=== PATIENT | male | born 1970 | race Caucasian/White ===

== ENCOUNTER 2017-05-28 05:17 | Observation (INO) | payer SELFPAY ==
[~2017-05-28] VITALS: Ht 180.3 cm; Wt 108.1 kg
[~2017-05-28 05:17] MED LIST: GABAPENTIN300 MG PO; LIDOCAINE HCL50 ML TOP; ROBAXIN-750750 MG PO
[2017-05-28] MEDS ORDERED: BUPIVACAINE 0.25% 30ML SDV INJ ONE (06:51)
[2017-05-28] MEDS ORDERED: GELATIN SPONGE SZ 100 ONE (06:52)
[2017-05-28] MEDS ORDERED: BACITRACIN 50,000 UNIT VIAL ONE ×2 (06:52→09:51)
[2017-05-28] MEDS ORDERED: MINERAL OIL STERILE 10ML VIAL ONE (07:07)
[2017-05-28] MEDS ORDERED: LIDOCAINE HCL (LTA) 4 ML SOLN ONE (07:29)
[2017-05-28] MEDS ORDERED: FENTANYL CITRATE/PF 100MCG/2 ML INJ ONE ×2 (11:01→19:12)
[2017-05-28] MEDS ORDERED: HYDROMORPHONE 1MG/1ML INJ ONE ×2 (11:24→11:55)
[2017-05-28 12:25] VITALS: BP 120/79
[2017-05-28] MEDS ORDERED: TRAMADOL HCL 50 MG TAB PO PRN (13:00)
[2017-05-28] MEDS ORDERED: MORPHINE SULFATE 5 MG/ML VIAL IM PRN (13:00)
--- NOTE | 2017-05-28 13:07 | Operative Report ---
DATE OF PROCEDURE: May 28, 2017 PREOPERATIVE DIAGNOSIS: Herniated lumbar disk, L4-L5 on the left. POSTOPERATIVE DIAGNOSIS: Herniated lumbar disk, L4-L5 on the left, with abnormal blood vessels. PROCEDURE: Lumbar laminectomy under the microscope at L4-L5 on the left, removal of extruded disk, foraminotomy and neurolysis external, intraoperative interpretation of x-rays times 2, removal of abnormal epidural blood vessels, harvesting of subcutaneous fat and placement of epidural fat graft to prevent ingrowth of scar. ESTIMATED BLOOD LOSS: 100 mL. COUNTS: Reported as correct. OPERATIVE PROCEDURE: After satisfactory general intubation anesthesia was established, the patient was placed prone on the operating room table, with care being taken to ensure normal circulatory and respiratory functioning. A localizing x-ray had been taken, which I interpreted to indicate the needle was pointed to the L5-S1 area. The incision was carried out after prepping and draping. The incision was carried down through the subcutaneous tissues, past 2 or 3 inches of fat to the dorsal fascia. The fascia was from the spine at L4 and L5 on the left side. An x-ray was taken and confirmed the level as being L4-5. I drilled down the fairly thick lamina of L4 and L5, took out the thick, yellow ligament. This revealed an L5 nerve root that was markedly swollen and compressed. A foraminotomy and neurolysis were done. There were very large blood vessels that seemed to be venous and some arterial in the epidural space. These were packed off, and bipolar coagulation was used as required to control the bleeding. The nerve root was freed up as mentioned. An incision was made through the disk material, and multiple disk particles were removed. Reverse-angle curets were used to push down the material in the midline and out laterally. Good decompression was achieved. A large amount of disk material was removed that had extruded, and the disk space was cleaned out satisfactorily. The nerve root was now nice and loose, pulsatile, without any evidence of any further compression. I probed the foramen for the L4 nerve root, and it was free of any disk. There were large blood vessels epidurally. These were cauterized, cut and sent off for analysis. These seemed to be inflammatory blood vessels that were in response to the large disk herniation and the block in that area. The block had been relieved. Good hemostasis was obtained. Copious amounts of irrigation were made with antibiotic solution. I harvested some fat from the subcutaneous tissues and placed this in the opening of the lamina to prevent ingrowth of scar. Closure was made with #1 Vicryl in the fascial layer, multiple-layer closure with more superficial closure with 3-0 Vicryl in the subcuticular area and Steri-Strips in the skin. Sterile dressing was applied. The patient tolerated the procedure well and went to recovery room with stable vital signs. OPERATIVE FINDINGS: The patient had very large disk herniation. It was central and to the left with very swollen L5 nerve root. There were also abnormal blood vessels in the region that were removed and controlled. Job#: [id number]
[2017-05-28 13:18] VITALS: BP 120/79
[2017-05-28] MEDS ORDERED: CEFAZOLIN SOD 1 GM VIAL ONE (13:42)
[2017-05-28] MEDS ORDERED: MORPHINE SULFATE INJ 4 MG/ML INJ IV PRN (13:45)
[2017-05-28] MEDS ORDERED: CEFAZOLIN SOD 1 GM in WATER STERILE 10ML VIAL 10 ML IV SCH (14:00)
[2017-05-28] MEDS ORDERED: DEXAMETHASONE 4 MG TAB PO SCH (15:00)
[2017-05-28] MEDS ORDERED: LACTATED RINGER'S 1,000 ML IV SCH (15:30)
[2017-05-28 16:00] VITALS: BP 118/80
[2017-05-28] MEDS ORDERED: FAMOTIDINE 20 MG TAB PO SCH (17:00)
[2017-05-28] MEDS ORDERED: MIDAZOLAM HCL 2 MG/2 ML VIAL ONE (19:12)
[2017-05-28] MEDS ORDERED: KETOROLAC TROMETHAMINE 30 MG/ML VIAL ONE (19:38)
[2017-05-28] MEDS ORDERED: PROPOFOL IV EMULSION 10 MG/ML 20 ML VIAL ONE (19:38)
[2017-05-28] MEDS ORDERED: LIDOCAINE HCL 2% LOCAL INJ 5 ML SDV VIAL INJ ONE (19:38)
[2017-05-28] MEDS ORDERED: ONDANSETRON HCL INJ 2 MG/ML VIAL ONE (19:38)
[2017-05-28] MEDS ORDERED: SEVOFLURANE INHAL SOLN 250 ML PEN BTL ONE (19:38)
[2017-05-28] MEDS ORDERED: NEOSTIGMINE 5 MG/5ML SYR ONE (19:38)
[2017-05-28] MEDS ORDERED: DEXAMETHASONE SOD PHOS INJ 4 MG/ML VIAL ONE (19:38)
[2017-05-28] MEDS ORDERED: GLYCOPYRROLATE INJ 1MG/ 5 ML SYR ONE (19:38)
[2017-05-28] MEDS ORDERED: ROCURONIUM BROMIDE 10 MG/ML 5ML VIAL ONE (19:38)
[2017-05-28] MEDS ORDERED: LIDOCAINE HCL 2% JELLY 5 ML TUBE ONE (19:38)
== END 2017-05-28 18:01 | disposition home or self-care (01) ==
LOC: OR 05:17 → IMCU 11:37
PROVIDERS: ADMIT Specialist; ATTEND Specialist
DX: M51.16 Intervertebral disc disorders with radiculopathy, lumbar region (principal)
CPT/HCPCS: 37799; 63030; 72020; 86850; 86900; 88304; 93005; G0378; J0690; J1100; J1170; J1885; J2001 ×2; J2250; J2405